=== PATIENT | female | born 1990 | race Caucasian/White ===

== ENCOUNTER 2017-02-12 12:21 | Emergency (ER) | payer OTHER ==
[~2017-02-12] VITALS: Ht 149.9 cm; Wt 93.5 kg
[2017-02-12] MEDS ORDERED: LIDODERM 5% P1 PATCH TD (14:42)
[2017-02-12] MEDS ORDERED: FLEXERIL10 MG PO (14:42)
[2017-02-12] MEDS ORDERED: NAPROXEN500 MG PO (14:42)
[2017-02-12 15:31] VITALS: BP 111/71
== END 2017-02-12 15:31 | disposition home or self-care (01) ==
LOC: EME 12:21
DX: S39.012A Strain of muscle, fascia and tendon of lower back, initial encounter (principal); X50.1XXA Overexertion from prolonged static or awkward postures, initial encounter
CPT/HCPCS: 99281; 99285; J1885; J3010

== ENCOUNTER 2017-09-12 14:14 | Emergency (ER) | payer OTHER ==
[~2017-09-12] VITALS: Ht 149.9 cm; Wt 89.2 kg
[~2017-09-12 14:14] MED LIST: FLEXERIL10 MG PO; LIDODERM 5% P1 PATCH TD; NAPROXEN500 MG PO
[2017-09-12 15:30] LABS: HEMATOCRIT 40.1 % (36.0-46.0); HEMOGLOBIN 13.7 G/DL (11.9-15.5); MCH 29.3 PG (29.0-34.0); MCHC 34.2 G/DL (30.0-36.0); MCV 85.9 FL (83-99); PLATELET COUNT 267 K/uL (156-360); RBC DIS.WIDTH-CV 12.1 % (11.8-14.6); RBC DIS.WIDTH-SD 37.7 % (39-53); RED BLOOD COUNT 4.67 M/uL (3.80-5.20); WHITE BLOOD COUNT 6.3 K/uL (4.1-10.2)
[2017-09-12 15:39] LABS: CHLORIDE 106 mEq/L (99-109); POTASSIUM 4.1 mEq/L (3.7-5.4); SODIUM 140 mEq/L (136-147)
[2017-09-12 15:40] LABS: GLUCOSE 95 mg/dL (70-99)
[2017-09-12 15:44] LABS: CREATININE 0.7 mg/dL (0.6-1.3); GFR ESTIMATE (CALCULATED) > 59 mL/min/
[2017-09-12 15:45] LABS: UREA NITROGEN (BUN) 13 mg/dL (9-23)
[2017-09-12 16:06] LABS: QUANTITATIVE HCG < 4.0 MIU/ML
[2017-09-12 16:48] LABS: APPEARANCE SL.HAZY ((CLEAR)); BILIRUBIN NEGATIVE; BLOOD NEGATIVE; COLOR YELLOW ((YELLOW)); GLUCOSE (STRIP) NEGATIVE; KETONES NEGATIVE; LEUKOCYTES NEGATIVE; NITRITE NEGATIVE; PROTEIN (STRIP) NEGATIVE; SPECIFIC GRAVITY 1.024 (1.000-1.030); UROBILINOGEN 0.2 MG/DL (0.2-1.0)
[2017-09-12 17:00] LABS: BACTERIA NONE SEEN /HPF; EPITHELIAL CELLS RARE /HPF; MUCUS TRACE /LPF; RED BLOOD CELLS 0-5 /HPF (0-5); WHITE BLOOD CELLS 0-5 /HPF (0-5)
[2017-09-12] MEDS ORDERED: FLEXERIL10 MG PO (17:45)
[2017-09-12] MEDS ORDERED: NAPROSYN500 MG PO (17:45)
[2017-09-12 17:53] VITALS: BP 132/76
== END 2017-09-12 17:53 | disposition home or self-care (01) ==
LOC: EME 14:14
PROVIDERS: Nurse Practitioner Family
DX: R51 Headache (principal); S16.1XXA Strain of muscle, fascia and tendon at neck level, initial encounter; X58.XXXA Exposure to other specified factors, initial encounter; R11.2 Nausea with vomiting, unspecified; H53.8 Other visual disturbances; Z32.02 Encounter for pregnancy test, result negative
CPT/HCPCS: 80048; 81003; 84702; 85027; 99281; 99284; J1885

== ENCOUNTER 2018-04-29 19:56 | Emergency (ER) | payer OTHER ==
[~2018-04-29] VITALS: Ht 149.9 cm; Wt 83.1 kg
[~2018-04-29 19:56] MED LIST changes: +NAPROSYN500 MG PO
[2018-04-29 20:34] LABS: HEMATOCRIT 36.6 % (36.0-46.0); HEMOGLOBIN 12.4 G/DL (11.9-15.5); MCH 28.6 PG (29.0-34.0); MCHC 33.9 G/DL (30.0-36.0); MCV 84.5 FL (83-99); PLATELET COUNT 157 K/uL (156-360); RBC DIS.WIDTH-CV 13.2 % (11.8-14.6); RBC DIS.WIDTH-SD 40.1 % (39-53); RED BLOOD COUNT 4.33 M/uL (3.80-5.20); WHITE BLOOD COUNT 3.8 K/uL (4.1-10.2)
[2018-04-29 20:44] LABS: ALBUMIN 3.9 g/dL (3.2-4.8); CHLORIDE 106 mEq/L (99-109); POTASSIUM 3.8 mEq/L (3.7-5.4); SODIUM 137 mEq/L (136-147)
[2018-04-29 20:46] LABS: GLUCOSE 107 mg/dL (70-99)
[2018-04-29 20:48] LABS: TOTAL BILIRUBIN 0.4 mg/dL (0.0-1.0)
[2018-04-29 20:50] LABS: ALKALINE PHOSPHATASE 95 IU/L (3-129); CREATININE 0.8 mg/dL (0.6-1.3); GFR ESTIMATE (CALCULATED) > 59 mL/min/
[2018-04-29 20:51] LABS: UREA NITROGEN (BUN) 12 mg/dL (9-23)
[2018-04-29 20:52] LABS: AST (GOT) 48 IU/L (2-34)
[2018-04-29 20:53] LABS: ALT (GPT) 47 IU/L (3-49)
[2018-04-29 21:00] LABS: QUANTITATIVE HCG < 4.0 MIU/ML
[2018-04-29 21:48] LABS: LIPASE 63 U/L (1.0-51.0)
[2018-04-29 22:08] LABS: APPEARANCE CLEAR ((CLEAR)); BILIRUBIN NEGATIVE; BLOOD NEGATIVE; COLOR YELLOW ((YELLOW)); GLUCOSE (STRIP) NEGATIVE; KETONES NEGATIVE; LEUKOCYTES NEGATIVE; NITRITE NEGATIVE; PROTEIN (STRIP) 30; SPECIFIC GRAVITY 1.034 (1.000-1.030); UCUL ADDED? NO
[2018-04-29 22:35] LABS: MONOSPOT (MONONUCLEOSIS SEROL) NEGATIVE
[2018-04-30 02:18] VITALS: BP 105/72
== END 2018-04-30 02:20 | disposition home or self-care (01) ==
LOC: EME 19:56
PROVIDERS: Physician Assistant
DX: R50.9 Fever, unspecified (principal); D72.819 Decreased white blood cell count, unspecified; R10.30 Lower abdominal pain, unspecified; Z87.440 Personal history of urinary (tract) infections; E28.2 Polycystic ovarian syndrome; Z91.018 Allergy to other foods
CPT/HCPCS: 71046; 74177; 80053; 81003; 83605; 83690; 84702; 85027; 86308; 87040; 99281; 99284; J7030